=== PATIENT | male | born 1995 | race African-American/Black ===

== ENCOUNTER 2020-08-09 23:18 | Emergency (ER) | payer OTHER ==
[2020-08-09] MEDS ORDERED: Lidocaine 1% (PF) 30 ML VIAL ONE (23:28)
[2020-08-10] MEDS ORDERED: Lorazepam 2 MG/ML VIAL ONE (01:35)
== END 2020-08-10 03:42 | disposition short-term general hospital (02) ==
LOC: NAV ERS 23:18
DX: S66.922A Laceration of unspecified muscle, fascia and tendon at wrist and hand level, left hand, initial encounter (principal); X78.9XXA Intentional self-harm by unspecified sharp object, initial encounter
CPT/HCPCS: 12002; 96374; J2001; J2060